=== PATIENT | male | born 1965 ===

== ENCOUNTER → 2021-08-01 | Outpatient (CLI) | payer OTHER ==
--- NOTE | 2021-08-01 16:08 | KCIC ---
EXAM: CT coronary artery calcium screening; radiologist over read. HISTORY: Mixed hyperlipidemia. Cigarette smoking. Family history of heart disease. TECHNIQUE: Computed tomographic images of the chest were obtained without contrast. Multiplanar refor matting was performed. *One or more of the following individualized dose reduction techniques were utilized for this examina tion: 1. Automated exposure control. 2. Adjustment of the mA and/or kV according to patient size. 3. Use of iterative reconstruction technique. COMPARISON: None. FINDINGS: The heart is normal in size. There is coronary artery calcification. There is no lymphadeno pavel. There is no infiltrate, pleural effusion or pneumothorax. There is linear scarring or atelecta sis within the posterior left upper lobe. There is no acute finding involving the upper abdomen or os seous structures. Coronary artery calcium score: Left main artery - 0 Left anterior descending - 4.7 Left circumflex - 0 Right coronary artery - 0 Posterior descending artery - 0 TOTAL = 4.7 IMPRESSION: 1. Coronary artery calcification. Calcium score of 4.7. There is small amount of calcified atheroscle rotic plaque. Low risk. 2. No significant incidental thoracic finding. Electronically signed by: Maryam Berger MD (08/01/2021 4:05 PM) [id number]
== END ==
LOC: KCIC CT 15:18
PROVIDERS: ATTEND Family Medicine
DX: I25.10 Atherosclerotic heart disease of native coronary artery without angina pectoris (principal); E78.2 Mixed hyperlipidemia; F17.210 Nicotine dependence, cigarettes, uncomplicated
CPT/HCPCS: 75571